=== PATIENT | male | born 1975 | race Caucasian/White ===

== ENCOUNTER 2020-01-24 14:47 | Emergency (ER) | payer OTHER ==
[2020-01-24] MEDS ORDERED: Tetracaine HCl/PF 0.5% 4 ML Bottle EYELF ONE (15:00)
[2020-01-24] MEDS ORDERED: Tetracaine HCl/PF 0.5% 4 ML Bottle ONE (15:20)
--- NOTE | 2020-01-24 15:35 | EDM.PDOC ---
ED HPI GENERAL MEDICAL PROBLEM - General Chief Complaint: Eye Problems Stated Complaint: FOREIGN BODY IN L EYE Time Seen by Provider: 01/24/20 15:18 Source of Information: Reports: Patient History Limitations: Reports: No Limitations - History of Present Illness INITIAL COMMENTS - FREE TEXT/NARRATIVE: Patient is a 44-year-old gentleman who presents to the emergency department via private vehicle with a complaint of left eye pain. Patient states that he was working with metal in a white lead grinder and suspects he got a piece of metal in left eye. Patient states he was wearing eye protection, but thinks it might have entered under glasses. Since and occurred just prior to arrival. Patient denies any other injury. Visual acuity assessed and no visual deficit noted. Onset: Today, Sudden Duration: Minutes: Location: Reports: Other (Left eye) Quality: Reports: Burning Severity: Mild Improves with: Reports: None Worsens with: Reports: None Associated Symptoms: Reports: No Other Symptoms Left Eye Pain Score (Numeric/FACES): 3 ED ROS GENERAL - Review of Systems Review Of Systems: Comprehensive ROS is negative, except as noted in HPI. Constitutional: Reports: No Symptoms HEENT: Reports: Eye Pain (Left) Respiratory: Reports: No Symptoms Cardiovascular: Reports: No Symptoms Endocrine: Reports: No Symptoms GI/Abdominal: Reports: No Symptoms : Reports: No Symptoms Musculoskeletal: Reports: No Symptoms Skin: Reports: No Symptoms Neurological: Reports: No Symptoms Psychiatric: Reports: No Symptoms Hematologic/Lymphatic: Reports: No Symptoms Immunologic: Reports: No Symptoms ED EXAM GENERAL W FULL EYE - Physical Exam Exam: See Below Exam Limited By: No Limitations General Appearance: Alert, WD/WN, No Apparent Distress Eye Exam: Bilateral Eye: Normal Inspection Visual Acuity (R) 20/: 20 Visual Acuity (L) 20/: 20 With Correction: No Eyelids: Bilateral: Normal Appearance Conjunctiva & Sclera: Bilateral: Normal Appearance Cornea Exam: Bilateral: Normal Appearance Extraocular Movements: Bilateral: Intact Pupils: Normal Accommodation Nose: Normal Inspection Throat/Mouth: Normal Inspection, Normal Oropharynx, No Airway Compromise Head: Atraumatic, Normocephalic Neck: Normal Inspection Respiratory/Chest: No Respiratory Distress Neurological: Alert, Oriented, Normal Cognition Psychiatric: Normal Affect, Normal Mood Skin Exam: Warm, Dry, Intact, Normal Color, No Rash ED EYE w/ Add Procedure - Eye Procedure Alcaine Drops Administered: Yes Progress: No foreign body visualized or coronary abrasion. Course - Vital Signs Last Recorded V/S: Last Vital Signs Temp 96.5 F L 01/24/20 14:59 Pulse 68 01/24/20 14:59 Resp 20 01/24/20 14:59 BP 149/85 H 01/24/20 14:59 Pulse Ox 96 01/24/20 14:59 - Orders/Labs/Meds Meds: Medications Discontinued Medications Generic Name Dose Route Start Last Admin Trade Name Quincy PRN Reason Stop Dose Admin Tetracaine HCl Confirm 01/24/20 15:20 Tetracaine 0.5% Steri-Unit Alyce Administered 01/24/20 15:21 Dose 4 ml .ROUTE .STK-MED ONE - Re-Assessments/Exams Free Text/Narrative Re-Assessment/Exam: 01/24/20 15:33 Patient afebrile, vital signs stable, no foreign body visualized. No corneal abrasion or conjunctival tae shauna injection noted. Departure - Departure Time of Disposition: 15:34 Disposition: Home, Self-Care 01 Condition: Good Clinical Impression: Foreign body in eye Qualifiers: Encounter type: initial encounter Laterality: left Qualified Code(s): T15.92XA - Foreign body on external eye, part unspecified, left eye, initial encounter - Discharge Information Instructions: Eye Foreign Body, [id number] Referrals: Yney Franco MD [Primary Care Provider] - Additional Instructions: Follow-up with PCP. If symptoms continue. Return to the ER for evaluation. Sepsis Event Note - Evaluation Sepsis Screening Result: No Definite Risk - Focused Exam Vital Signs: Vital Signs Temp Pulse Resp BP Pulse Ox 01/24/20 14:59 96.5 F L 68 20 149/85 H 96 Date Exam was Performed: 01/24/20 Time Exam was Performed: 15:29 - Assessment/Plan Assessment:: Eye foreign body Plan: Follow-up with PCP
== END 2020-01-24 15:45 | disposition home or self-care (01) ==
LOC: KA.ED 14:47
DX: T15.92XA Foreign body on external eye, part unspecified, left eye, initial encounter (principal); W22.8XXA Striking against or struck by other objects, initial encounter
CPT/HCPCS: 99283

== ENCOUNTER 2020-12-15 13:08 | Emergency (ER) | payer BC, OTHER ==
--- NOTE | 2020-12-15 13:15 | EDM.PDOC ---
ED HPI GENERAL MEDICAL PROBLEM - General Chief Complaint: Gastrointestinal Problem Stated Complaint: FEELS LIKE SOMETHING CAUGHT IN THROAT Time Seen by Provider: 12/15/20 13:14 Source of Information: Reports: Patient - History of Present Illness INITIAL COMMENTS - FREE TEXT/NARRATIVE: Federico, 45-year-old male, presents emergency department ambulatory after what he states has a piece of chicken caught in his esophagus. He points to the mid to lower third on the chest wall. States he has had this occur with dry sticky rice in the past that usually breaks up with drinking water. Tried water but did not Relieve the pressure/obstruction feeling to his esophagus. Feels mildly anxious with pressure sensation with no respiratory concerns. Onset: Today, Sudden Duration: Minutes: Chest Pain Score (Numeric/FACES): 5 - Related Data Allergies Allergy/AdvReac Type Severity Reaction Status Date / Time No Known Drug Allergies Allergy Cannot Verified 12/15/20 13:17 Remember Home Meds: Home Meds Multivitamin 1 tab PO DAILY 12/15/20 [History] Past Medical History Cardiovascular History: Reports: None Respiratory History: Reports: None Gastrointestinal History: Reports: Other (See Below) (Mild esophageal obstruction concerns. Has never undergone formal evaluation.) Genitourinary History: Reports: None Social & Family History - Family History Family Medical History: No Pertinent Family History - Caffeine Use Caffeine Use: Reports: Coffee ED ROS GENERAL - Review of Systems Review Of Systems: Comprehensive ROS is negative, except as noted in HPI. ED EXAM, GENERAL - Physical Exam Exam: See Below Free Text/Narrative:: Alert, oriented, mildly anxious but in no acute distress. HEENT is negative discharge or deformity. [place] moist mucous membranes Neck soft supple no lymphadenopathy Thorax is clear no wheezes no crackles, full inspiratory expiratory pattern with no laboring. Cardiac is S1-S2 with no noted murmur. He does not show any evidence of cyanosis nor pallor he is not in any acute distress but does feel mildly anxious. Course - Vital Signs Last Recorded V/S: Last Vital Signs Temp 98.5 F 12/15/20 13:49 Pulse 79 12/15/20 13:49 Resp 18 12/15/20 13:49 BP 156/96 H 12/15/20 13:49 Pulse Ox 98 12/15/20 13:49 - Orders/Labs/Meds Orders: Active Orders 24 hr Category Date Time Status Peripheral IV Care [RC] . DIRECTED Care 12/15/20 13:18 Active Chest 2V [CR] Stat Exams 12/15/20 13:56 Ordered Sodium Chloride 0.9% [Saline Flush] Med 12/15/20 13:18 Active 10 ml FLUSH Q8HR PRN Peripheral IV Insertion Adult [OM.PC] Routine Oth 12/15/20 13:18 Ordered Medication Orders Sodium Chloride (Sodium Chloride 0.9% 10 Ml Syringe) 10 ml FLUSH Q8HR PRN PRN Reason: keep vein open Meds: Medications Generic Name Dose Route Start Last Admin Trade Name Freq PRN Reason Stop Dose Admin Sodium Chloride 10 ml 12/15/20 13:18 Sodium Chloride 0.9% 10 Ml Syringe FLUSH Q8HR PRN keep vein open Discontinued Medications Generic Name Dose Route Start Last Admin Trade Name Freq PRN Reason Stop Dose Admin Glucagon 1 mg 12/15/20 13:18 12/15/20 13:48 Glucagon,Human Recombinant 1 Mg Vial IVPUSH 12/15/20 13:19 1 mg ONETIME ONE Administration - Re-Assessments/Exams Free Text/Narrative Re-Assessment/Exam: 12/15/20 14:24 Unable at this time to swallow water. States he still has a feeling in the lower esophageal region. Would prefer discussion and options with Dr. Omayra Franco if available versus blind tube attempt to dislodge. He continues to be able to burp, but unable to swallow, thus making me believe it is a valve flap-like presentation of the obstruction. Free Text/Narrative Re-Assessment/Exam: 12/15/20 15:00 After discussion of x-ray findings, continues to be extremely gaggy when attempting to self water and bringing up secretions, mostly saliva. Is still able to burp slightly with no ability to swallow fluid. Discussed and will send by private vehicle to [facility] for definitive care Departure - Departure Time of Disposition: 14:57 Disposition: DC/Tfer to Acute Hospital 02 Condition: Good Clinical Impression: Esophageal obstruction due to food impaction - Discharge Information *PRESCRIPTION DRUG MONITORING PROGRAM REVIEWED*: Not Applicable *COPY OF PRESCRIPTION DRUG MONITORING REPORT IN PATIENT ALLEGRA: Not Applicable Referrals: Yeny Franco MD [Primary Care Provider] - Forms: ED Department Discharge, Interfacility Transfer EMTALA Additional Instructions: Will go by private vehicle to [facility] for evaluation and treatment per receiving physician Dr. Romo. Sepsis Event Note (ED) - Focused Exam Vital Signs: Vital Signs Temp Pulse Resp BP Pulse Ox 12/15/20 13:49 98.5 F 79 18 156/96 H 98 - Problem List & Annotations (1) Esophageal obstruction due to food impaction SNOMED Code(s): 375708438 Code(s): K22.2 - ESOPHAGEAL OBSTRUCTION; T18.128A - FOOD IN ESOPHAGUS CAUSING OTHER INJURY, INITIAL ENCOUNTER Status: Acute Priority: High Current Visit: Yes (2) Anxious appearance SNOMED Code(s): 77875546, 826036520 Code(s): R45.89 - OTHER SYMPTOMS AND SIGNS INVOLVING EMOTIONAL STATE Status: Acute Priority: High Current Visit: Yes - Problem List Review Problem List Initiated/Reviewed/Updated: Yes - My Orders Last 24 Hours: My Active Orders 12/15/20 13:18 Peripheral IV Care [RC] . DIRECTED Sodium Chloride 0.9% [Saline Flush] 10 ml FLUSH Q8HR PRN Peripheral IV Insertion Adult [OM.PC] Routine 12/15/20 13:56 Chest 2V [CR] Stat - Assessment/Plan Last 24 Hours: My Active Orders 12/15/20 13:18 Peripheral IV Care [RC] . DIRECTED Sodium Chloride 0.9% [Saline Flush] 10 ml FLUSH Q8HR PRN Peripheral IV Insertion Adult [OM.PC] Routine 12/15/20 13:56 Chest 2V [CR] Stat Plan: Will go by private vehicle to [facility] for evaluation and treatment per receiving physician Dr. Romo.
[2020-12-15] MEDS ORDERED: Sodium Chloride 0.9% 10 ML Syringe FLUSH PRN (13:18)
[2020-12-15] MEDS: Glucagon,Human Recombinant 1 MG Vial IVPUSH ONE (13:48)
--- NOTE | 2020-12-15 14:39 | CR ---
[id number] RAD/RAD Chest PA And Lateral EXAM: RAD Chest PA And Lateral INDICATION: FOREIGN BODY ESOPHAGUS. COMPARISON: None. DISCUSSION: Cardiomediastinal silhouette is normal in size and contour. Lungs are clear. No pleural effusion or pneumothorax. No radiopaque foreign bodies. IMPRESSION: Negative examination of the chest. Clifford Fuentes MD 12/15/20 [id number] Thank you for allowing us to participate in the care of your patient.
== END 2020-12-15 15:30 ==
LOC: KA.ED 13:08
DX: T18.128A Food in esophagus causing other injury, initial encounter (principal); K22.2 Esophageal obstruction
CPT/HCPCS: 71046; 96374; 99284; 99284-25; J1610

== ENCOUNTER 2021-08-10 18:02 | Emergency (ER) | payer BC ==
[2021-08-10] MEDS ORDERED: Sodium Chloride 0.9% 1,000 ML IV ONE (18:07)
[2021-08-10] MEDS ORDERED: Sodium Chloride 0.9% 10 ML Syringe FLUSH PRN (18:07)
[2021-08-10] MEDS ORDERED: Ketorolac 30 MG/ML SDV IVPUSH ONE (18:08)
[2021-08-10] MEDS ORDERED: Ketorolac 30 MG/ML SDV IM ONE (18:08)
--- NOTE | 2021-08-10 18:14 | EDM.PDOC ---
ED HPI GENERAL MEDICAL PROBLEM - General Chief Complaint: Abdominal Pain Stated Complaint: ABDOMINAL P AIN Time Seen by Provider: 08/10/21 18:02 Source of Information: Reports: Patient History Limitations: Reports: No Limitations - History of Present Illness INITIAL COMMENTS - FREE TEXT/NARRATIVE: Mauri, 46-year-old male, presents emergency department with right lower quadrant pain rating into his testicle on the right side. He also has incidental right flank pain. States he was seen at the clinic last Tuesday for urine burning post void. States his urine work-up was benign at that time and not started on any of antibiotics. He has renal lithiasis in his history which she states he passed with no difficulty. Stated the pain started at 430 this afternoon right flank right lower quadrant radiating into the testicle on the right side. He was not doing any exertional activity at the time. Had 2 bowel movements today with no discomfort. Has not had a history of dehydration or dietary changes. Thought to have the renal lithiasis secondary of his "pop intake" Onset: Today, Sudden Onset Date: 08/10/21 Onset Time: 16:30 Duration: Hour(s): Location: Reports: Abdomen, Back, Pelvis Quality: Reports: Sharp Severity: Severe Improves with: Reports: None Worsens with: Reports: Movement Context: Reports: Other Associated Symptoms: Reports: No Other Symptoms Right Lower Abdomen Pain Score (Numeric/FACES): 7 - Related Data Allergies Allergy/AdvReac Type Severity Reaction Status Date / Time No Known Drug Allergies Allergy Cannot Verified 08/10/21 18:13 Remember Home Meds: Home Meds Ketorolac [Toradol] 10 mg PO Q8H PRN 4 Days #12 tab 08/10/21 [Rx] Tamsulosin HCl [Flomax] 0.4 mg PO DAILY 30 Days #30 cap.er.24h 08/10/21 [Rx] Past Medical History - Past Health History Medical/Surgical History: Denies Medical/Surgical History Cardiovascular History: Reports: None Respiratory History: Reports: None Gastrointestinal History: Reports: Other (See Below) Genitourinary History: Reports: Renal Calculus Social & Family History - Family History Family Medical History: No Pertinent Family History - Caffeine Use Caffeine Use: Reports: Soda ED ROS GENERAL - Review of Systems Review Of Systems: Comprehensive ROS is negative, except as noted in HPI. ED EXAM, GENERAL - Physical Exam Exam: See Below Free Text/Narrative:: Alert oriented slightly diaphoretic and difficult to find position of comfort. HEENT is negative discharge or deformity. Neck is soft supple with no rigidity. Thorax is clear no wheezes nor crackles. Cardiac is S1-S2 with no appreciated murmur. Flank pain to percussion on the right. Bowel sounds are present. Supine positioning is mildly tender in the right lower half of the abdomen also periumbilical slightly with no rebound tenderness. There is no tenderness to the left side of the abdomen. Course - Vital Signs Last Recorded V/S: Last Vital Signs Temp 96.7 F L 08/10/21 18:30 Pulse 70 08/10/21 18:30 Resp 16 08/10/21 18:30 BP 149/90 H 08/10/21 18:30 Pulse Ox 100 08/10/21 18:30 - Orders/Labs/Meds Orders: Active Orders 24 hr Category Date Time Status Peripheral IV Care [RC] . DIRECTED Care 08/10/21 18:07 Active Sodium Chloride 0.9% [Saline Flush] Med 08/10/21 18:07 Active 10 ml FLUSH Q8HR PRN Peripheral IV Insertion Adult [OM.PC] Stat Oth 08/10/21 18:07 Ordered Medication Orders Sodium Chloride (Sodium Chloride 0.9% 10 Ml Syringe) 10 ml FLUSH Q8HR PRN PRN Reason: keep vein open Last Admin: 08/10/21 18:29 Dose: 10 ml Documented by: TIANNA Labs: Laboratory Tests 08/10/21 08/10/21 08/10/21 Range/Units 18:10 18:10 18:15 WBC 12.33 H (5.00-10.00) 10^3/uL RBC 5.10 (4.50-6.00) 10^6/uL Hgb 15.0 (13.0-17.0) g/dL Hct 44.3 (40.0-52.0) % MCV 86.9 (82.0-92.0) fL MCH 29.4 (27.0-31.0) pg MCHC 33.9 (32.0-36.0) g/dL RDW 11.9 (11.5-14.5) % Plt Count 270 (150-400) 10^3/uL MPV 9.8 (7.4-10.4) fL Immature Gran % (Auto) 0.1 (0.0-5.0) % Neut % (Auto) 63.7 (50.0-70.0) % Lymph % (Auto) 21.1 (20.0-40.0) % Long % (Auto) 8.1 H (2.0-8.0) % Eos % (Auto) 6.6 H (1.0-3.0) % Baso % (Auto) 0.4 (0.0-1.0) % Neut # (Auto) 7.86 H (2.50-7.00) 10^3/uL Lymph # (Auto) 2.60 (1.00-4.00) 10^3/uL Long # (Auto) 1.00 H (0.10-0.80) 10^3/uL Eos # (Auto) 0.81 H (0.10-0.30) 10^3/uL Baso # (Auto) 0.05 (0.00-0.10) 10^3/uL Immature Gran # (Auto) 0.01 (0.00-0.50) 10^3/uL Sodium 140 (136-145) mmol/L Potassium 3.6 (3.5-5.1) mmol/L Chloride 100 (98-107) mmol/L Carbon Dioxide 29.3 (21.0-32.0) mmol/L Anion Gap 14.3 (5-15) mmol/L BUN 14 (7-18) mg/dL Creatinine 0.85 (0.51-1.17) mg/dL Est Cr Clr Drug Dosing 116.89 mL/min Estimated GFR (MDRD) > 60 mL/min Glucose 117 (70-140) mg/dL Calcium 9.1 (8.7-10.3) mg/dL Total Bilirubin 0.4 (0.2-1.0) mg/dL AST 26 (15-37) U/L ALT 53 (14-63) U/L Alkaline Phosphatase 94 (46-116) U/L Total Protein 7.5 (6.4-8.2) g/dL Albumin 4.22 (3.40-5.00) g/dL Specimen Type Urincc Urine Color Yellow (YELLOW) Urine Appearance Clear (CLEAR) Urine pH 6.5 (5.0-9.0) Ur Specific [place] 1.025 (1.005-1.030) Urine Protein Negative (NEGATIVE) mg/dL Urine Glucose (UA) Negative (NEGATIVE) mg/dL Urine Ketones Negative (NEGATIVE) mg/dL Urine Occult Blood Large H (NEGATIVE) Urine Nitrite Negative (NEGATIVE) Urine Bilirubin Negative (NEGATIVE) Urine Urobilinogen 0.2 (0.2-1.0) E.U./dL Ur Leukocyte Esterase Negative (NEGATIVE) Urine RBC 40-50 H (0-5) /HPF Urine WBC 0-5 (0-5) /HPF Ur Epithelial Cells Few /LPF Urine Bacteria Rare (NONE TO FEW) /HPF Urine Mucus Rare H (NEGATIVE) /LPF Meds: Medications Generic Name Dose Route Start Last Admin Trade Name Quincy PRN Reason Stop Dose Admin Sodium Chloride 10 ml 08/10/21 18:07 08/10/21 18:29 Sodium Chloride 0.9% 10 Ml Syringe FLUSH 10 ml Q8HR PRN Administration keep vein open Discontinued Medications Generic Name Dose Route Start Last Admin Trade Name Quincy PRN Reason Stop Dose Admin Sodium Chloride 1,000 mls @ 999 mls/hr 08/10/21 18:07 08/10/21 18:19 Normal Saline IV 08/10/21 19:07 999 mls/hr .BOLUS ONE Administration Ketorolac Tromethamine 30 mg 08/10/21 18:08 08/10/21 18:19 Ketorolac 30 Mg/Ml Sdv IVPUSH 08/10/21 18:09 30 mg ONETIME ONE Administration Ketorolac Tromethamine 30 mg 08/10/21 18:08 08/10/21 18:22 Ketorolac 30 Mg/Ml Sdv IM 08/10/21 18:09 30 mg ONETIME ONE Administration Ondansetron HCl 8 mg 08/10/21 18:22 08/10/21 18:26 Ondansetron 4 Mg/2 Ml Sdv IVPUSH 08/10/21 18:23 8 mg ONETIME ONE Administration Tamsulosin HCl 0.4 mg 08/10/21 18:59 08/10/21 19:04 Tamsulosin 0.4 Mg Cap.Er PO 08/10/21 19:00 0.4 mg ONETIME ONE Administration - Radiology Interpretation Free Text/Narrative:: 5 x 2.5 mm stone in the distal right ureter with mild hydronephrosis. - Re-Assessments/Exams Free Text/Narrative Re-Assessment/Exam: 08/10/21 18:36 Pain is significantly improved at this time as well as mild improvement of the nausea. States he cannot tell any flank pain at this time and the right lower quadrant pain is barely notable. Negative psoas sign Free Text/Narrative Re-Assessment/Exam: 08/10/21 19:11 Pain at a level of 2 at this time very comfortable awaiting discharge Departure - Departure Time of Disposition: 19:13 Disposition: Home, Self-Care 01 Condition: Good Clinical Impression: Renal colic on right side, Renal lithiasis, Acute flank pain Abdominal pain Qualifiers: Abdominal location: right lower quadrant Qualified Code(s): R10.31 - Right lower quadrant pain Hematuria Qualifiers: Hematuria type: unspecified type Qualified Code(s): R31.9 - Hematuria, unspecified - Discharge Information *PRESCRIPTION DRUG MONITORING PROGRAM REVIEWED*: Not Applicable *COPY OF PRESCRIPTION DRUG MONITORING REPORT IN PATIENT ALLEGRA: Not Applicable Prescriptions: Tamsulosin HCl [Flomax] 0.4 mg PO DAILY 30 Days #30 cap.er.24h Ketorolac [Toradol] 10 mg PO Q8H PRN 4 Days #12 tab PRN Reason: Abdominal Pain Instructions: Kidney Stones, [id number] Referrals: Dinora Wu MD [Primary Care Provider] - Forms: ED Department Discharge Additional Instructions: You will need to strain all of your urine until this stone passes and is caught. Bring that to the clinic to discuss with them if they wish to do stone study analysis on it to determine if it is calcium or other products. This is typically done on the first event issue of catching the stone. Make sure you drink plenty of water, enough that your urine is light yellow almost clear during the day. You should only have dark urine when awakening in the morning. We will send home a Toradol pill for you to take tonight after 11:00 if needed and a prescription for the ketorolac/Toradol will be sent to your pharmacy as well as a prescription for Flomax to help ease passing of the stone. Avoid high calcium-containing foods and beverages until the stone passes and follow-up with your clinic as needed. Return to the emergency department outside of clinic hours if needed. Sepsis Event Note (ED) - Focused Exam Vital Signs: Vital Signs Temp Pulse Resp BP Pulse Ox 08/10/21 18:30 96.7 F L 70 16 149/90 H 100 - Problem List & Annotations (1) Acute flank pain SNOMED Code(s): 784106706, 040264366 Code(s): R10.9 - UNSPECIFIED ABDOMINAL PAIN Status: Acute Priority: High Current Visit: Yes Annotation/Comment:: Right flank to percssion with sight radiation to abd. (2) Abdominal pain SNOMED Code(s): 70464217 Code(s): R10.9 - UNSPECIFIED ABDOMINAL PAIN Status: Acute Priority: High Current Visit: Yes Annotation/Comment:: No rebound tenderness with radiation from fllank and into testicle (Rt) at times. Qualifiers: Abdominal location: right lower quadrant Qualified Code(s): R10.31 - Right lower quadrant pain (3) Renal colic on right side SNOMED Code(s): 2319934 Code(s): N23 - UNSPECIFIED RENAL COLIC Status: Acute Priority: High Current Visit: Yes (4) Renal lithiasis SNOMED Code(s): 99140429 Code(s): N20.0 - CALCULUS OF KIDNEY Status: Acute Priority: High Current Visit: Yes (5) Hematuria SNOMED Code(s): 04887781 Code(s): R31.9 - HEMATURIA, UNSPECIFIED Status: Acute Current Visit: Yes Qualifiers: Hematuria type: unspecified type Qualified Code(s): R31.9 - Hematuria, unspecified - Problem List Review Problem List Initiated/Reviewed/Updated: Yes - My Orders Last 24 Hours: My Active Orders 08/10/21 18:07 Peripheral IV Care [RC] . DIRECTED Sodium Chloride 0.9% [Saline Flush] 10 ml FLUSH Q8HR PRN Peripheral IV Insertion Adult [OM.PC] Stat - Assessment/Plan Last 24 Hours: My Active Orders 08/10/21 18:07 Peripheral IV Care [RC] . DIRECTED Sodium Chloride 0.9% [Saline Flush] 10 ml FLUSH Q8HR PRN Peripheral IV Insertion Adult [OM.PC] Stat Plan: You will need to strain all of your urine until this stone passes and is caught. Bring that to the clinic to discuss with them if they wish to do stone study analysis on it to determine if it is calcium or other products. This is typically done on the first event issue of catching the stone. Make sure you drink plenty of water, enough that your urine is light yellow almost clear during the day. You should only have dark urine when awakening in the morning. We will send home a Toradol pill for you to take tonight after 11:00 if needed and a prescription for the ketorolac/Toradol will be sent to your pharmacy as well as a prescription for Flomax to help ease passing of the stone. Avoid high calcium-containing foods and beverages until the stone passes and follow-up with your clinic as needed. Return to the emergency department outside of clinic hours if needed.
[2021-08-10] MEDS ORDERED: Ondansetron 4 MG/2 ML SDV IVPUSH ONE (18:22)
[2021-08-10 18:40] LABS: ANION GAP 14.3 mmol/L (5-15); CHLORIDE,CL 100 mmol/L (98-107); SODIUM,NA 140 mmol/L (136-145)
[2021-08-10] MEDS ORDERED: Tamsulosin 0.4 MG Cap.ER PO ONE (18:59)
--- NOTE | 2021-08-10 19:04 | CT ---
[id number] CT/CT Abdomen Pelvis WO IV EXAM: CT Abdomen Pelvis WO IV INDICATION: RIGHT FLANK/LOWER QUADRANT PAIN WITH HEMATURIA. COMPARISON: None. DISCUSSION: 5 x 2.5 mm distal right ureteral calculus with mild right hydroureteronephrosis. No other renal/ureteral calculi. No left-sided collecting system dilation. Degenerative changes in the spine most pronounced at L5-S1. Small fat-containing umbilical hernia. Unenhanced images of the liver, gallbladder, pancreas, spleen, adrenal glands, small bowel, large bowel, and appendix are unremarkable. No adenopathy, free air, or free fluid. IMPRESSION: 1. A 5 x 2.5 mm calculus in the distal right ureter results in mild right hydroureteronephrosis. Julio Pulido MD 08/10/21 [id number] Thank you for allowing us to participate in the care of your patient.
[2021-08-10] MEDS ORDERED: Ketorolac 10 MG Tab PO ONE (19:27)
== END 2021-08-10 19:35 | disposition home or self-care (01) ==
LOC: KA.ED 18:02
DX: N13.2 Hydronephrosis with renal and ureteral calculous obstruction (principal); R31.9 Hematuria, unspecified; Z79.899 Other long term (current) drug therapy
CPT/HCPCS: 36415; 74176; 80053; 81001; 85025; 96372; 96374; 96375; 99284; 99284-25; A9270-GY; J1885; J2405; J7030